=== PATIENT | female | born 1995 | race Caucasian/White ===

== ENCOUNTER 2018-01-25 16:37 | Emergency (ER) | payer MEDICAID ==
[2018-01-25 18:57] LABS: ADD MAN DIFF? NO
[2018-01-25 19:06] LABS: WHITE BLOOD COUNT 13.1 10^3/ul (4.8-10.8)
[2018-01-25 19:06] LABS: BASOPHIL # 0.1 10^3/ul (0.0-0.1); BASOPHILS % 0.4 % (0.0-2.0); EOSINOPHILS # 0.1 10^3/ul (0.0-0.5); EOSINOPHILS % 0.7 % (0.0-7.0); HEMATOCRIT 38.8 % (37.0-47.0); HEMOGLOBIN 13.4 g/dl (12.0-16.0); LYMPHOCYTES # 2.3 10^3/ul (0.8-2.9); LYMPHOCYTES % 17.5 % (15.0-51.0); MEAN CORPUSCULAR HEMOGLOBIN 31.9 pg (29.0-33.0); MEAN CORPUSCULAR HGB CONC 34.5 g/dl (32.0-37.0); MEAN CORPUSCULAR VOLUME 92.4 fl (82.0-101.0); MEAN PLATELET VOLUME 11.7 fl (7.4-10.4); MONOCYTE # 0.9 10^3/ul (0.3-0.9); MONOCYTES % 6.9 % (0.0-11.0); NEUTROPHIL # 9.7 10^3/ul (1.6-7.5); NEUTROPHILS % 73.9 % (39.0-77.0); PLATELET COUNT 204 10^3/UL (140-415); RED CELL DISTRIBUTION WIDTH 12.2 % (11.5-14.5)
[2018-01-25 19:13] LABS: ADD UMIC NO; UR ASCORBIC ACID NEGATIVE (NEGATIVE); UR BILIRUBIN (Dip) NEGATIVE (NEGATIVE); UR BLOOD (Dip) NEGATIVE (NEGATIVE); UR CLARITY CLEAR (CLEAR); UR COLOR STRAW (YELLOW); UR GLUCOSE (Dip) NEGATIVE (NEGATIVE); UR KETONES (Dip) NEGATIVE (NEGATIVE); UR LEUKOCYTE ESTERASE (Dip) NEGATIVE Leu/ul (NEGATIVE); UR NITRITE (Dip) NEGATIVE (NEGATIVE); UR SPECIFIC GRAVITY (Dip) 1.009 (1.003-1.030); UR TOTAL PROTEIN (Dip) NEGATIVE (NEGATIVE); UR UROBILINOGEN (Dip) NEGATIVE (NEGATIVE)
[2018-01-25 19:27] LABS: ANION GAP 11 (8-16); BLOOD UREA NITROGEN 8 mg/dl (7-20); CALCIUM 9.1 mg/dl (8.4-10.2); CARBON DIOXIDE 26 mmol/L (21-31); CHLORIDE 103 mmol/L (97-110); CREATININE 0.48 mg/dl (0.44-1.00); GLUCOSE 85 mg/dl (70-220); POTASSIUM 4.2 mmol/L (3.5-5.1); SODIUM 136 mmol/L (135-144)
== END 2018-01-25 20:11 | disposition home or self-care (01) ==
LOC: FTE 16:37
DX: O20.9 Hemorrhage in early pregnancy, unspecified (principal); R10.2 Pelvic and perineal pain; Z3A.01 Less than 8 weeks gestation of pregnancy
CPT/HCPCS: 36415; 76801; 80048; 81003; 84702; 85025; 86900; 86901; 99284-25

== ENCOUNTER 2018-08-30 11:05 | Inpatient (IN) | payer MEDICAID ==
[2018-08-30] MEDS ORDERED: MISOPROSTOL 200 MCG TAB PR (12:00)
[2018-08-30] MEDS ORDERED: OXYTOCIN 30 UNITS/LR 500 ML IV ×3 (12:00)
[2018-08-30] MEDS ORDERED: CARBOPROST 250 MCG INJ IM (12:00)
[2018-08-30] MEDS ORDERED: METHYLERGONOVINE 0.2 MG INJ IM (12:00)
[2018-08-30] MEDS ORDERED: LIDOCAINE 1% (MPF) 30 ML INJ INJ (12:00)
[2018-08-30 13:14] LABS: ADD MAN DIFF? NO
[2018-08-30 13:19] LABS: ABNORMAL IP MESSAGE 1; BASOPHILS % 0.3 % (0.0-2.0); EOSINOPHILS % 0.3 % (0.0-7.0); HEMATOCRIT 34.9 % (37.0-47.0); HEMOGLOBIN 11.6 g/dl (12.0-16.0); LYMPHOCYTES # 1.2 10^3/ul (0.8-2.9); LYMPHOCYTES % 9.4 % (15.0-51.0); MEAN CORPUSCULAR HEMOGLOBIN 30.4 pg (29.0-33.0); MEAN CORPUSCULAR HGB CONC 33.2 g/dl (32.0-37.0); MEAN CORPUSCULAR VOLUME 91.4 fl (82.0-101.0); MEAN PLATELET VOLUME 13.3 fl (7.4-10.4); MONOCYTE # 0.6 10^3/ul (0.3-0.9); MONOCYTES % 4.9 % (0.0-11.0); NEUTROPHIL # 10.4 10^3/ul (1.6-7.5); NEUTROPHILS % 84.3 % (39.0-77.0); PLATELET COUNT 133 10^3/UL (140-415); RED BLOOD COUNT 3.82 10^6/ul (4.20-5.40); RED CELL DISTRIBUTION WIDTH 15.9 % (11.5-14.5)
[2018-08-30 13:19] LABS: WHITE BLOOD COUNT 12.3 10^3/ul (4.8-10.8)
[2018-08-30 13:20] LABS: POSITIVE DIFF @See below
[2018-08-30 13:39] LABS: GLUCOSE 107 mg/dl (70-220)
[2018-08-30 13:42] LABS: INR 0.83; PROTIME 11.5 Sec (11.9-14.9); PT RATIO 0.9
[2018-08-30 13:43] LABS: PARTIAL THROMBOPLASTIN TIME 28.2 Sec (23.0-35.0)
[2018-08-30] MEDS: metFORMIN 500 MG TAB PO (14:06)
[2018-08-30] MEDS: LACTATED RINGER'S 1,000 ML IV ×3 (14:08→23:19)
[2018-08-30 14:10] LABS: HEPATITIS B SURFACE ANTIGEN NEGATIVE (NEGATIVE)
[2018-08-30 16:44] LABS: RAPID PLASMA REAGIN NONREACTIVE (NR)
[2018-08-30] MEDS: OXYTOCIN 30 UNITS/LR 500 ML IV (18:41)
[2018-08-30] MEDS: DEXTROSE 5%-LR 1,000 ML IV ×2 (20:54→22:10)
[2018-08-30] MEDS ORDERED: IBUPROFEN 600 MG TAB PO (22:30)
[2018-08-31] MEDS: LACTATED RINGER'S 1,000 ML IV ×2 (03:55→20:21)
[2018-08-31] MEDS ORDERED: MINERAL OIL LIGHT 10 ML VIAL TOP (04:00)
[2018-08-31] MEDS ORDERED: FENTAnyl 2MCG/ML-ROPIV 0.2% 100 ML (04:07)
[2018-08-31] MEDS ORDERED: NALOXONE (0.4 MG/ML) INJ IV (04:30)
[2018-08-31] MEDS ORDERED: ONDANSETRON 4 MG INJ IV (04:30)
[2018-08-31] MEDS ORDERED: DIPHENHYDRAMINE 50 MG INJ IV (04:30)
[2018-08-31] MEDS: DEXTROSE 5%-LR 1,000 ML IV ×3 (04:46→21:02)
[2018-08-31] MEDS: OXYTOCIN 30 UNITS/LR 500 ML IV (12:31)
[2018-08-31] MEDS: FENTAnyl 2MCG/ML-ROPIV 0.2% 100 ML BAG EPI ×2 (13:50→20:15)
[2018-08-31] MEDS: ACETAMINOPHEN 325 MG TAB PO (20:42)
[2018-08-31] MEDS: AMPICILLIN 2 GM/NS (PMX) 100 ML IV (20:47)
[2018-09-01] MEDS ORDERED: CEFAZOLIN 2 GM/50 ML (PMX) 50 ML IVPB ×3 (00:10→02:00)
[2018-09-01] MEDS ORDERED: AMPICILLIN 1 GM/NS (PMX) 50 ML IV (00:30)
[2018-09-01] MEDS ORDERED: OXYTOCIN 10 UNIT INJ ×4 (00:33→01:15)
[2018-09-01] MEDS ORDERED: PHENYLephrine (100 MCG/ML) 5ML SYG (00:59)
[2018-09-01] MEDS ORDERED: morphine SULFATE/PF (10 MG/10 ML) INJ (01:02)
[2018-09-01] MEDS ORDERED: FENTAnyl 50 MCG/ML VIAL ×2 (01:11→01:19)
[2018-09-01] MEDS ORDERED: MIDAZOLAM 1 MG/ML 2 ML INJ (01:17)
[2018-09-01] MEDS ORDERED: OXYTOCIN 30 UNITS/LR 500 ML IV ×2 (02:00)
[2018-09-01] MEDS ORDERED: CARBOPROST 250 MCG INJ IM (02:00)
[2018-09-01] MEDS ORDERED: NACL 0.9% 3 ML SYG IV (02:00)
[2018-09-01] MEDS ORDERED: MISOPROSTOL 200 MCG TAB PR (02:00)
[2018-09-01] MEDS ORDERED: OXYCODONE/ACETAMINOPHEN (5/325) TAB PO (02:00)
[2018-09-01] MEDS ORDERED: METHYLERGONOVINE 0.2 MG INJ IM (02:00)
[2018-09-01] MEDS ORDERED: ONDANSETRON 4 MG INJ IV (02:30)
[2018-09-01] MEDS ORDERED: DIPHENHYDRAMINE 50 MG INJ IV (02:30)
[2018-09-01] MEDS ORDERED: NALOXONE (0.4 MG/ML) INJ IV (02:30)
[2018-09-01] MEDS: OXYTOCIN 30 UNITS/LR 500 ML IV ×3 (02:52→22:00)
[2018-09-01] MEDS: KETOROLAC 30 MG INJ IV ×4 (03:05→23:54)
[2018-09-01] MEDS ORDERED: ACETAMINOPHEN 325 MG TAB PO (03:30)
[2018-09-01] MEDS: LACTATED RINGER'S 1,000 ML IV ×3 (03:36→19:30)
[2018-09-01] MEDS: ACETAMINOPHEN 325 MG TAB PO (03:55)
[2018-09-01] MEDS: IBUPROFEN 800 MG TAB PO ×3 (06:00→22:00)
[2018-09-01] MEDS: MISOPROSTOL 200 MCG TAB SL (06:03)
[2018-09-01 08:01] LABS: ADD MAN DIFF? NO
[2018-09-01 08:04] LABS: ABNORMAL IP MESSAGE 1; BASOPHILS % 0.2 % (0.0-2.0); HEMATOCRIT 28.4 % (37.0-47.0); HEMOGLOBIN 9.2 g/dl (12.0-16.0); LYMPHOCYTES % 6.5 % (15.0-51.0); MEAN CORPUSCULAR HEMOGLOBIN 30.1 pg (29.0-33.0); MEAN CORPUSCULAR HGB CONC 32.4 g/dl (32.0-37.0); MEAN CORPUSCULAR VOLUME 92.8 fl (82.0-101.0); MEAN PLATELET VOLUME 13.4 fl (7.4-10.4); MONOCYTE # 0.8 10^3/ul (0.3-0.9); MONOCYTES % 5.6 % (0.0-11.0); NEUTROPHIL # 12.9 10^3/ul (1.6-7.5); PLATELET COUNT 116 10^3/UL (140-415); RED BLOOD COUNT 3.06 10^6/ul (4.20-5.40); RED CELL DISTRIBUTION WIDTH 15.9 % (11.5-14.5)
[2018-09-01 08:04] LABS: WHITE BLOOD COUNT 14.8 10^3/ul (4.8-10.8)
[2018-09-01 08:08] LABS: POSITIVE DIFF @See below
[2018-09-01] MEDS: CEFAZOLIN 2 GM/50 ML (PMX) 50 ML IVPB ×3 (08:26→23:35)
[2018-09-01] MEDS: morphine 2 MG INJ IV (20:08)
[2018-09-02] MEDS: OXYCODONE/ACETAMINOPHEN (5/325) TAB PO ×3 (02:59→23:29)
[2018-09-02] MEDS: LACTATED RINGER'S 1,000 ML IV (03:30)
[2018-09-02] MEDS: IBUPROFEN 800 MG TAB PO ×3 (05:48→22:12)
[2018-09-02 08:06] LABS: ADD MAN DIFF? NO
[2018-09-02 08:08] LABS: WHITE BLOOD COUNT 12.5 10^3/ul (4.8-10.8)
[2018-09-02 08:08] LABS: BASOPHILS % 0.2 % (0.0-2.0); EOSINOPHILS # 0.1 10^3/ul (0.0-0.5); EOSINOPHILS % 0.6 % (0.0-7.0); HEMOGLOBIN 8.4 g/dl (12.0-16.0); LYMPHOCYTES # 1.4 10^3/ul (0.8-2.9); LYMPHOCYTES % 10.8 % (15.0-51.0); MEAN CORPUSCULAR HEMOGLOBIN 30.4 pg (29.0-33.0); MEAN CORPUSCULAR HGB CONC 32.3 g/dl (32.0-37.0); MEAN CORPUSCULAR VOLUME 94.2 fl (82.0-101.0); MEAN PLATELET VOLUME 12.7 fl (7.4-10.4); MONOCYTE # 0.6 10^3/ul (0.3-0.9); MONOCYTES % 4.6 % (0.0-11.0); NEUTROPHIL # 10.4 10^3/ul (1.6-7.5); NEUTROPHILS % 82.9 % (39.0-77.0); PLATELET COUNT 110 10^3/UL (140-415); RED BLOOD COUNT 2.76 10^6/ul (4.20-5.40); RED CELL DISTRIBUTION WIDTH 15.9 % (11.5-14.5)
[2018-09-02] MEDS: LANOLIN HPA 1 PKT TOP (13:54)
[2018-09-02] MEDS ORDERED: VITAMIN A & D 5 GM OINT PACKET TOP (19:34)
[2018-09-02] MEDS: ACETAMINOPHEN 325 MG TAB PO (21:03)
[2018-09-03] MEDS: IBUPROFEN 800 MG TAB PO ×3 (05:58→22:19)
[2018-09-04] MEDS: IBUPROFEN 800 MG TAB PO ×2 (05:44→14:12)
[2018-09-04 06:57] LABS: ADD MAN DIFF? NO
[2018-09-04 07:00] LABS: BASOPHILS % 0.3 % (0.0-2.0); EOSINOPHILS # 0.1 10^3/ul (0.0-0.5); EOSINOPHILS % 0.7 % (0.0-7.0); HEMATOCRIT 27.7 % (37.0-47.0); HEMOGLOBIN 8.9 g/dl (12.0-16.0); LYMPHOCYTES # 1.4 10^3/ul (0.8-2.9); LYMPHOCYTES % 11.8 % (15.0-51.0); MEAN CORPUSCULAR HEMOGLOBIN 30.2 pg (29.0-33.0); MEAN CORPUSCULAR HGB CONC 32.1 g/dl (32.0-37.0); MEAN CORPUSCULAR VOLUME 93.9 fl (82.0-101.0); MEAN PLATELET VOLUME 11.9 fl (7.4-10.4); MONOCYTE # 0.6 10^3/ul (0.3-0.9); MONOCYTES % 5.1 % (0.0-11.0); NEUTROPHIL # 9.3 10^3/ul (1.6-7.5); NEUTROPHILS % 80.7 % (39.0-77.0); NUCLEATED RED BLOOD CELLS% 0.2 /100WBC (0.0-0.0); PLATELET COUNT 204 10^3/UL (140-415); RED BLOOD COUNT 2.95 10^6/ul (4.20-5.40); RED CELL DISTRIBUTION WIDTH 15.6 % (11.5-14.5)
[2018-09-04 07:00] LABS: WHITE BLOOD COUNT 11.5 10^3/ul (4.8-10.8)
[2018-09-04] MEDS: DIPHTH/TET/ACEL PERTUSS (ADULT) 0.5 ML VIAL IM* (09:00)
== END 2018-09-04 18:30 | disposition home or self-care (01) | DRG 788 ==
LOC: L-D 09-01 00:13 → OBT 11:05 → L-D 11:07 → PP1 09-01 04:22 → L-D 11:50 → OBT 11:35 → L-D 11:35
PROVIDERS: Obstetrics & Gynecology
PROC: 10D00Z1 Extraction of Products of Conception, Low, Open Approach (ICD-10-PCS; principal; 2018-09-01)
PROC: 3E033VJ Introduction of Other Hormone into Peripheral Vein, Percutaneous Approach (ICD-10-PCS; 2018-09-01)
DX: O33.5XX0 Maternal care for disproportion due to unusually large fetus, not applicable or unspecified (principal); O24.425 Gestational diabetes mellitus in childbirth, controlled by oral hypoglycemic drugs; Z3A.36 36 weeks gestation of pregnancy; Z37.0 Single live birth; O61.0 Failed medical induction of labor
CPT/HCPCS: 62319; 76815; 82947; 82962; 85025; 85610; 85730; 86592; 86850; 86900; 86901; 87340; 90686; 99464